=== PATIENT | female | born 1970 | race Native Hawaiian/Other Pacific Islander ===

== ENCOUNTER 2020-01-26 09:26 | Outpatient (CLI) | payer OTHER | END 2020-01-26 23:05 | disposition home or self-care (01) | LOC: RAD 09:26 | DX: E03.9 Hypothyroidism, unspecified (principal); K21.9 Gastro-esophageal reflux disease without esophagitis; R05 Cough ==

== ENCOUNTER 2020-05-05 08:54 | Outpatient (CLI) | payer OTHER | END 2020-05-05 19:44 | disposition home or self-care (01) | LOC: RAD 08:54 | DX: E03.9 Hypothyroidism, unspecified (principal); K21.9 Gastro-esophageal reflux disease without esophagitis; F32.9 Major depressive disorder, single episode, unspecified; E78.5 Hyperlipidemia, unspecified; R06.02 Shortness of breath ==

== ENCOUNTER 2021-11-29 10:21 | Outpatient (CLI) | payer OTHER | END 2021-11-29 18:52 | disposition home or self-care (01) | LOC: RAD 10:21 | PROVIDERS: ATTEND Nurse Practitioner Family | DX: R05.8 Other specified cough (principal) ==

== ENCOUNTER 2023-01-15 09:58 | Outpatient (CLI) | payer OTHER | END 2023-01-15 20:45 | disposition home or self-care (01) | LOC: RAD 09:58 | PROVIDERS: ATTEND Nurse Practitioner Family | DX: R10.2 Pelvic and perineal pain (principal) ==

== ENCOUNTER 2023-04-25 11:09 | Outpatient (CLI) | payer OTHER | END 2023-04-25 22:11 | disposition home or self-care (01) | LOC: RAD 11:09 | PROVIDERS: ATTEND Nurse Practitioner Family | DX: M54.12 Radiculopathy, cervical region (principal) ==

== ENCOUNTER 2023-08-01 09:54 | Outpatient (CLI) | payer OTHER | END 2023-08-01 19:50 | disposition home or self-care (01) | LOC: US 09:54 | PROVIDERS: ATTEND Nurse Practitioner Family | DX: E03.8 Other specified hypothyroidism (principal) ==